=== PATIENT | female | born 1980 | race Caucasian/White ===

== ENCOUNTER 2016-06-26 11:52 | Emergency (ER) | payer BC | END 2016-06-26 12:00 | disposition home or self-care (01) | LOC: ED 11:52 | DX: Z53.9 Procedure and treatment not carried out, unspecified reason (principal); R10.9 Unspecified abdominal pain ==

== ENCOUNTER 2024-03-07 12:51 | Emergency (ER) | payer BC, OTHER ==
[2024-03-07 13:31] VITALS: RESP 20; TEMP 96.6
[2024-03-07 14:05] VITALS: O2SAT 97
--- NOTE | 2024-03-07 14:42 | XRAY ---
CLINICAL HISTORY: pain COMPARISON: No prior studies are available for comparison. TECHNIQUE: X-ray images of the left wrist were obtained in [place], lateral, and oblique projections. FINDINGS: Bone Structure: A flake of bone is identified lying posteriorly to the triquetral bone, worrisome of avulsion injury, another possibility is os triquetrum. There are some linear lucencies seen within the distal radius involving the cortex raising possibility of a fracture, which warrants clinical correlation for point of tenderness and CT if clinically indicated. No evidence of dislocation. No other osseous lesions. Joint Spaces: Joint spaces are normal. No evidence of joint effusion or subluxation. Soft Tissues: Soft tissues appear normal and unremarkable. No soft tissue swelling, calcifications, or foreign bodies were noted. Additional Findings: No signs of osteoarthritis, bone spurs, lytic or sclerotic lesions. IMPRESSION: 1. A flake of bone is identified lying posteriorly to the triquetral bone, worrisome of avulsion injury, another possibility is os triquetrum. 2. Linear lucencies seen within the distal radius involving the cortex raise the possibility of a fracture, which warrants clinical correlation for point of tenderness and CT if clinically indicated. Disclaimer: A subtle bone abnormality or fracture may not be readily apparent on X-rays, thus clinical correlation and further imaging including follow-up CT, MRI, or follow-up X-rays are advised as needed. [facility] was called at [phone] at 1:31 PM [employer] on 03/07/2024, and Sammi (Nurse) was informed regarding the presence of important medical findings in the report. She will inform the Doctor about the findings. Electronically Signed by: Mariana Jain MD. (03/07/2024 14:38:15 EST)
--- NOTE | 2024-03-07 14:59 | ERPHSYRPT ---
- History of Present Illness Time Seen by Provider: 03/07/24 13:30 Source: patient Exam Limitations: no limitations Patient Subjective Stated Complaint: pt states that she put her foot out of her jeep and slipped on the ice. pt states that she fell on her left wrist Triage Nursing Assessment: pt ambulated into the er; pt is axo x4; c/o wrist injury; pt states 7/10 pain to left wrist; strong left radial pulse; decreased ROM to left wrist; good cap refill to left hand; skin PDW; no respiratory distress present; hypertensive Physician History: 44-year-old female presents to our ED for evaluation of left wrist pain. P atient states that she slipped on ice while stepping out of her vehicle this morning at 9 AM. Patient self medicated with ibuprofen. Pain described as an ache that is localized. Pain worse with movement and palpation. Pain improves with rest. No other injuries reported. Patient is right-hand dominant. Patient otherwise feels well. She voices no other complaints or concerns at this time. Portions of this note were created with voice recognition technology. There may be grammatical, spelling, punctuation or sound alike errors Timing/Duration: today Severity: moderate Modifying Factors: Improves With: ibuprofen Associated Symptoms: denies symptoms Allergies/Adverse Reactions: No Known Drug Allergies Allergy (Verified 03/07/24 13:21) Home Medications: No Reportable Medications [No Reported Medications] 03/07/24 [History] Hx Tetanus, Diphtheria Vaccination/Date Given: No (unknown) Hx Influenza Vaccination/Date Given: No Hx Pneumococcal Vaccination/Date Given: No Travel Risk - International Travel Have you traveled outside of the country in past 3 weeks: No - Emerging Infectious Disease Are you exhibiting symptoms associated with any current EIDs: No - Review of Systems Constitutional: No Symptoms, No Fever, No Chills Eyes: No Symptoms Ears, Nose, & Throat: No Symptoms Respiratory: No Symptoms, No Cough, No Dyspnea Cardiac: No Symptoms, No Chest Pain, No Edema, No Syncope Abdominal/Gastrointestinal: No Symptoms, No Abdominal Pain, No Nausea, No Vomiting, No Diarrhea Genitourinary Symptoms: No Symptoms, No Dysuria Musculoskeletal: No Symptoms, No Back Pain, No Neck Pain Skin: No Symptoms, No Rash Neurological: No Symptoms, No Dizziness, No Focal Weakness, No Sensory Changes Psychological: No Symptoms Endocrine: No Symptoms Hematologic/Lymphatic: No Symptoms Immunological/Allergic: No Symptoms All Other Systems: Reviewed and Negative - Past Medical History Pertinent Past Medical History: No Neurological History: No Pertinent History Cardiac History: No Pertinent History Respiratory History: No Pertinent History Endocrine Medical History: No Pertinent History Musculoskeletal History: No Pertinent History - Past Surgical History Past Surgical History: Yes Musculoskeletal: Orthopedic Surgery Female Surgical History: Section Other Surgical History: Tonsillectomy, rt wrist repair - Female History Hx Now: No - Social History Smoking Status: Never smoker Exposure to second hand smoke: No Drug Use: none Patient Lives Alone: No - Social Determinants of Health Will the patient participate in the screening: Yes Do you worry about a steady place to live?: No Do you have any problems with any of the following?: No known problems In the past 12 months,have you had to go without utilities?: No Transportation Issues: No Has anyone in your support network made you feel unsafe?: No Have you or anyone in your house had to go without enough: No - Nursing Vital Signs Nursing Vital Signs: Initial Vital Signs Blood Pressure 165/98 03/07/24 13:22 O2 Sat by Pulse Oximetry 96 03/07/24 13:22 Pain Scale Pain Intensity 7 - Physical Exam General Appearance: no apparent distress, alert Eye Exam: PERRL/EOMI, eyes nml inspection Ears, Nose, Throat Exam: normal ENT inspection, moist mucous membranes Neck Exam: normal inspection, full range of motion Respiratory Exam: normal breath sounds, airway intact, No respiratory distress Cardiovascular Exam: regular rate/rhythm, normal heart sounds, normal peripheral pulses Gastrointestinal/Abdomen Exam: soft, normal bowel sounds, No tenderness, No mass Back Exam: normal inspection, normal range of motion, No CVA tenderness, No vertebral tenderness Extremity Exam: normal inspection, normal range of motion Neurologic Exam: alert, oriented x 3, cooperative, normal mood/affect, sensation nml, No motor deficits Skin Exam: normal color, warm, dry, No rash Lymphatic Exam: No adenopathy SpO2 Interpretation: normal SpO2: 97 O2 Delivery: Room Air - Course Nursing assessment & vital signs reviewed: Yes - Radiology Exams Wrist X-ray Interpretation: Teleradiologist Report (Avulsion fracture and distal radius fracture) Ordered Tests: Active Orders 24 hr Category Date Time Status WRIST (MIN 3 VIEWS) Stat Exams 03/07/24 13:23 Completed - Progress Progress: improved Progress Note: 44-year-old female presents to our ED for evaluation of left wrist pain after slipping and falling while exiting her vehicle. X-ray suggestive of possible avulsion fracture and there is some evidence of a distal radius fracture no dis location. No displacement. Patient placed in a sugar-tong splint. Patient neurovascular tact distally pre and post placement of splint. Sling applied. Patient given referral to the orthopedic clinic scheduled for tomorrow. [id number] analgesics as needed. No other injuries reported. No indication for further workup at this time. Will discharge home. Patient voices no other complaints or concerns at this time. Portions of this note were created with voice recognition technology. There may be grammatical, spelling, punctuation or sound alike errors Complexity of problem addressed is moderate acute complicated no critical care time complex of data reviewed and analyzed is moderate. Test ordered chest reviewed results analyzed and correlated clinically with history and physical exam. Risk of complication and or risk of morbidity/mortality of patient management is low. Vital stable. Time spent to discharge patient approximately 10 minutes. Plan of care established for shared decision making. No social determinants of health present to impede follow-up. Portions of this note were created with voice recognition technology. There may be grammatical, spelling, punctuation or sound alike errors 03/07/24 14:57 Counseled pt/family regarding: diagnosis, need for follow-up, rad results - Departure Departure Disposition: Home Clinical Impression: Wrist fracture Condition: Stable Critical Care Time: No Referrals: LEVI MUNOZ PA [Primary Care Provider] - Follow up/PCP as directed Additional Instructions: Discharge/Care Plan LONDONALVAREZ was seen on 03/07/24 in the Emergency Room. The patient was counseled regarding Diagnosis,Lab results, Imaging studies, need for follow up and when to return to the Emergency Room. Prescriptions given: Discharge Note I have spoken with the patient and/or caregivers. I have explained the patient's condition, diagnosis and treatment plan based on the information available to me at this time. I have answered the patient's and/or caregiver's questions and addressed any concerns. The patient and/or caregivers have as good understanding of the patient's diagnosis, condition and treatment plan as can be expected at this point. The vital signs have been stable. The patient's condition is stable and appropriate for discharge from the emergency department. The patient will pursue further outpatient evaluation with the primary care physician or other designated or consulting physician as outlined in the discharge instructions. The patient and/or caregivers are agreeable to this plan of care and follow-up instructions have been explained in detail. The patient and/or caregivers have received these instruction. The patient/and or caregivers are aware that any significant change in condition or worsening of symptoms should prompt an immediate return to this or the closest emergency department or call 911. Outpatient Orders: Ortho Referral Time Frame: 1 Day, Facility[facility]
[2024-03-07 15:24] VITALS: BP 149/89; PULSE 89
== END 2024-03-07 15:30 | disposition home or self-care (01) ==
LOC: ED 12:51
DX: S52.502A Unspecified fracture of the lower end of left radius, initial encounter for closed fracture (principal); M25.532 Pain in left wrist; W00.2XXA Other fall from one level to another due to ice and snow, initial encounter
CPT/HCPCS: 29125; 73110; 99283